=== PATIENT | male | born 1990 | race Caucasian/White ===

== ENCOUNTER 2017-10-06 21:09 | Emergency (ER) | payer OTHER ==
[~2017-10-06] VITALS: Ht 182.9 cm; Wt 107.7 kg
[2017-10-06] MEDS ORDERED: VENTOLIN HFA18 GM IH (23:39)
[2017-10-06] MEDS ORDERED: SINGULAIR10 MG PO (23:39)
[2017-10-06] MEDS ORDERED: MEDROL DOSEPAK4 MG PO (23:39)
[2017-10-07 00:56] VITALS: BP 135/80
== END 2017-10-07 00:56 | disposition home or self-care (01) ==
LOC: EME 21:09
DX: J45.909 Unspecified asthma, uncomplicated (principal); Z91.048 Other nonmedicinal substance allergy status
CPT/HCPCS: 71046; 94640; 99281; 99283; J7512